=== PATIENT | female | born 1940 | race Caucasian/White ===

== ENCOUNTER 2020-05-04 14:14 | Outpatient (NON) | payer MEDICARE, SELFPAY ==
[2020-05-04 15:17] LABS: Albumin Level 2.9 g/dL (3.4-5.0); Anion Gap 10 mmol/L (8-16); Blood Urea Nitrogen 35 mg/dL (7-18); Calcium 9.2 mg/dL (8.5-10.1); Carbon Dioxide 28 mmol/L (21-32); Chloride 103 mmol/L (98-108); Estimated Glomerular Filt Rate 37; Glucose 153 mg/dL (70-99); Osmolality Calculated 303 mOsm/kg (285-295); Phosphorus 3.4 mg/dL (2.6-4.7); Sodium 141 mmol/L (136-145)
== END 2020-05-04 14:15 ==
DX: N18.30 Chronic kidney disease, stage 3 unspecified (principal)
CPT/HCPCS: 36415; 80069

== ENCOUNTER 2020-06-24 16:15 | Outpatient (NON) | payer MEDICARE, SELFPAY ==
[2020-06-24 17:07] LABS: Hemoglobin A1C 7.2 % (<5.7)
== END 2020-06-24 16:16 ==
DX: E11.9 Type 2 diabetes mellitus without complications (principal)
CPT/HCPCS: 36415; 83036